=== PATIENT | male | born 2000 | race Hispanic/Latino ===

== ENCOUNTER 2020-04-17 10:09 | Emergency (ER) | payer BC ==
[~2020-04-17] VITALS: Ht 180.3 cm; Wt 77.1 kg
[2020-04-17] MEDS ORDERED: PENICILLIN V P500 MG PO (10:46)
--- NOTE | 2020-04-17 10:47 | Emergency Department Note ---
History of Present Illnes History of Present Illness Chief Complaint: c/o sore troat and fever for a few days History of Present Illness This is a 20 year old male . Historian: Patient Arrival Mode: Car Receiving Lead Required: No Onset (how long ago): day(s) (few days started on antibiotics 3 days ago and saw PMD yesterday no better) Location: throat Quality: painful Radiation: Reports non-radiation Severity: moderate Onset quality: gradual Duration (how long): day(s) (3) Progression: unchanged Chronicity: recurrent Relieving factors: none Exacerbating factors: none Risk factors: none Past Medical/Family History Physician Review I have reviewed the patient's past medical and family history. Any updates have been documented here. Past Medical History Recent Fever: Yes (102.8) Clinical Suspicion of Infectio: Yes New/Unexplained Change in Ment: No Past Medical History: None Other Medical History: phayngitis in the past and told he may need tonsillectomy Past Surgical History: None Social History Smoking Cessation: Never Smoker Counseling Performed: No Alcohol Use: Occasional Any Illegal Drug Use: No Physically hurt or threatened: No Other Any Pre-Existing Lines (PICC,: Yes Is patient up to date on immun: Yes Review of Systems Review of Systems Constitutional: Reports no symptoms EENTM: Reports as per HPI Cardiovascular: Reports no symptoms Respiratory: Reports no symptoms Gastrointestinal: Reports no symptoms Genitourinary: Reports no symptoms Musculoskeletal: Reports no symptoms Integumentary: Reports no symptoms Neurological: Reports no symptoms Psychological: Reports no symptoms Endocrine: Reports no symptoms Hematological/Lymphatic: Reports no symptoms Review of other systems: All other systems negative Physical Exam Related Data Allergies: Coded Allergies: No Known Allergies (Unverified , 04/17/20) Triage Vital Signs Vital Signs Date Time Temp Pulse Resp B/P (MAP) Pulse Ox O2 Delivery O2 Flow Rate FiO2 04/17/20 10:21 96.5 93 18 145/72 100 Vital signs reviewed: Yes Physical Exam CONSTITUTIONAL Constitutional: Present well-developed, Present well-nourished HENT HENT: Present normocephalic, Present atraumatic, Present nose normal, Present tonsillar excudate, Present pharynx abnormal, Present erythema, Present dentition normal HENT L/R: Present left TM normal, Present right TM normal (tonsillar exudate mild without any sign of peritonsillar abscess) EYES Eyes: Reports PERRL, Reports conjunctivae normal, Reports EOM normal, Reports lids normal NECK Neck: Present ROM normal, Present supple PULMONARY Pulmonary: Present effort normal, Present breath sounds normal CARDIOVASCULAR Cardiovascular: Present regular rhythm, Present heart sounds normal, Present intact distal pulses, Present capillary refill normal, Present normal rate GASTROINTESTINAL Abdominal: Present soft, Present nontender, Present bowel sounds normal GENITOURINARY Genitourinary: Present exam deferred SKIN Skin: Present warm, Present dry MUSCULOSKELETAL Musculoskeletal: Present ROM normal NEUROLOGICAL Neurological: Present alert, Present oriented x 3, Present DTRs normal, Present no gross motor or sensory deficits PSYCHOLOGICAL Psychological: Present mood/affect normal, Present behavior normal, Present thought content normal, Present judgement normal Assessment & Plan Medical Decision Making MDM pharyngitis unresponsive to antbiotics . Probably viral in etiology. Suggested that patient get a covid testing . Will stop clindamycin and ciprofloxacin since they are not working and will start PCN 250 mg po qid for 10 days.Told to follow with PMD. Also told patient to get a covid test since these symptoms may be due to covid 19 Assessment & Plan Final Impression: (1) Pharyngitis Depart Disposition: HOME, SELF-CARE Last Vital Signs Date Time Temp Pulse Resp B/P (MAP) Pulse Ox O2 Delivery O2 Flow Rate FiO2 04/17/20 10:21 96.5 93 18 145/72 100 Home Meds Active Scripts Penicillin V Potassium (PENICILLIN V POTASSIUM) 500 Mg Tablet, 250 MG PO Q6H for 10 Days, #40 TAB 0 Refills Prov:BRADY GROSS MD 04/17/20 BRADY GROSS MD Apr 17, 2020 10:47
== END 2020-04-17 10:52 | disposition home or self-care (01) ==
LOC: FSED 10:35
DX: J02.9 Acute pharyngitis, unspecified (principal); R50.9 Fever, unspecified
CPT/HCPCS: 99282